=== PATIENT | male | born 1935 | race American Indian/Alaskan Native ===

== ENCOUNTER 2018-07-09 16:13 | Observation (INO) | payer BC ==
[2018-07-09] MEDS ORDERED: SODIUM CHLORIDE 1,000 ML IV SCH (16:15)
--- NOTE | 2018-07-09 17:11 | PDOC ---
Attending Attestation - Resident Resident Name: Minda Ganth - ED Attending Attestation I have performed the following: I have examined & evaluated the patient, The case was reviewed & discussed with the resident, I agree w/resident's findings & plan, Exceptions are as noted - HPI HPI: 07/09/18 17:11 82 yo male who became confused at 3:40 and had left facial droop - Physicial Exam PE: 07/09/18 19:45 slender 82 yo male with left facial droop head ncat eyes deann eomi neck no jvd lungs cta b/l cvs [id number] abd flat ext mild pitting edema neuro no motor weakness,no drift but very confused,mild let facial droop, no neglect,conversant skin warm and dry - Medical Decision Making 07/09/18 19:41 pt became confused at 3:40 today and p/w left facial droop and confusion,unable to understand what was requested of him . however he has NO motor weakness 07/09/18 19:42 ct scan head no acute infarct or bleed 07/09/18 19:43 pt admitted for TIA,HTn,DM consulted Veronika and plan for admission,asa,MRI
[2018-07-09] MEDS ORDERED: ASPIRIN 81 MG CHEWABLE TABLETS PO ONE ×2 (17:34→17:37)
[2018-07-09 17:42] LABS: BASO % 0.6 % (0-2.0); EOS % 1.4 % (0-4.5); HEMATOCRIT 37.9 % (35.4-49); LYMPH % 15.3 % (8-40); MCH 29.8 pg (25.7-33.7); MCHC 34.3 g/dl (32.0-35.9); MEAN PLT VOLUME 9.4 fl (7.5-11.1); MONO % 4.4 % (3.8-10.2); NEUT % 78.3 % (42.8-82.8); PLATELET COUNT 143 K/MM3 (134-434); RBC 4.36 M/mm3 (4.00-5.60); RDW 14.4 % (11.9-15.9); WHITE BLOOD COUNT 7.1 K/mm3 (4.0-10.0)
[2018-07-09] MEDS ORDERED: amLODIPine BESYLATE 10 MG TABLET (FP) PO ONE (17:43)
[2018-07-09] MEDS ORDERED: amLODIPine BESYLATE 5 MG TABLET (FP) ONE (17:50)
[2018-07-09] MEDS ORDERED: ASPIRIN 81 MG CHEWABLE TABLETS ONE (17:50)
[2018-07-09 17:56] LABS: INR 0.98 (0.83-1.09); PROTHROMBIN TIME (PATIENT) 11.6 SEC (9.7-13.0)
--- NOTE | 2018-07-09 18:16 | PDOC ---
History of Present Illness <Fidelina Larkin - Last Filed: 07/09/18 19:51> - History of Present Illness Initial Comments: 82yo M with history of IDDM, HTN, HLD presenting with left-sided facial droop. Collateral history provided from his . Patient's last know well was around 3 :40pm, about thirty minutes prior to arrival. She reports that he suddenly became very confused, was not speaking correctly, and had left-sided facial droop. <Maribel Gan - Last Filed: 07/12/18 07:34> - General Chief Complaint: CVA/TIA Stated Complaint: RULE OUT STROKE Time Seen by Provider: 07/09/18 16:45 tPA Exclusion Checklist 0-3hr - Time Elapsed Date last known well: 07/09/18 Time last known well: 15:40 Elaspsed time: 2 Day(s) and 15 Hour(s) and 47 Minutes - Thrombolytic Therapy Candidate Is the patient eligible for Thrombolytic Therapy?: No - Exclusion Criteria 0-3hr SBP greater than 185 or DBP greater than 110mmHg despite tx: Yes Recent IC/spinal surgery,head trauma or stroke w/in last 3mo: No Hx of previous IC hemorrhage, IC neoplasm, AVM or aneurysm: No Active internal bleeding: No Blding diathesis(low plt ct, inc PTT,INR>1.7 or use of NOAC): No Symptoms suggest subarachnoid hemorrhage: No CT demonstrates multilobar infarct(>1/3 cerebral hemiphere): No Arterial puncture at noncompressible site in previous 7 days: No Blood glucose concentration less than 50mg/dL (2.7mmol/L): No - Relative Exclusion Criteria 0-3h Life expectancy <1yr/severe co-morbid illness/DE[employer]DER on admit: No : No Patient/family refused: No Rapid improvement: No Stroke severity too mild: No Recent acute [place] (w/in previous 3 months): No Seizure at onset with postictal residual neuro impairments: No Major surgery or serious trauma w/in previous 14 days: No Recent GI or hemorrhage (w/in previous 21 days): No - Ineligibility reason(s) Reasons No tPA given: See reason(s) noted above (Dr. Rod, neurologist, also contends that patient's presentation is not consistent with a regional distribution) <ElviaMaribel - Last Filed: 07/12/18 07:34> NIH Stroke Scale - Last Known Well Date/Time & Onset Date Last Known Well: 07/09/18 Time Last Known Well: 15:40 - Initial Evaluation Level of consciousness: Alert Ask patient the month and their age: Both incorrect Ask patient to open & close eyes; make fist and let go: Both incorrect Best gaze (horizontal eye movement): Normal Visual field testing: No visual field loss Facial paresis (Show teeth/raise eyebrows/close eyes tight): Minor paralysis ( flattened nasolabial fold, asymmetry on smiling) Motor Function: Left Arm: Normal Motor Function: Right Arm: Normal (extends arm 90 (or 45) degrees for 10 seconds without drift Motor Function: Left Leg: Normal (extends leg 30 degrees for 5 seconds without drift) Motor Function: Right Leg: Normal (extends leg 30 degrees for 5 seconds without drift) Limb Ataxia: No ataxia Sensory(Use pinprick test arms,legs,trunk,face/side to side): Normal Best language (Describe picture, name items, read sentences): Severe aphasia Dysarthria (read several words): Normal articulation Extinction and Inattention: No abnormality - Total Score NIH Stroke Scale Score: 7 <ElviaMairbel - Last Filed: 07/12/18 07:34> Past History <Fidelina Larkin - Last Filed: 07/09/18 19:51> - Past Medical History CVA: Yes (TIA x2 2006,2009) COPD: No Diabetes: Yes (type 1) HTN: Yes Hypercholesterolemia: Yes - Suicide/Smoking/Psychosocial Hx Smoking Status: No Smoking History: Never smoked Have you smoked in the past 12 months: No Number of Cigarettes Smoked Daily: 0 Information on smoking cessation initiated: No Hx Alcohol Use: No Drug/Substance Use Hx: No Substance Use Type: None Hx Substance Use Treatment: No <Maribel Gan - Last Filed: 07/12/18 07:34> - Past Medical History Allergies/Adverse Reactions: Allergies Allergy/AdvReac Type Severity Reaction Status Date / Time shellfish derived AdvReac Severe Rash Verified 07/09/18 16:15 DUCK EGG AdvReac Severe Rash Uncoded 07/09/18 16:15 Home Medications: Ambulatory Orders Aspirin [ASA -] 81 mg PO DAILY 05/24/13 Enalapril Maleate [Vasotec -] 30 mg PO DAILY 05/24/13 NPH, Human Insulin Isophane [Humulin N] 25 unit SQ BID 05/24/13 Levothyroxine [Synthroid -] 25 mcg PO DAILY 07/09/18 Amlodipine Besylate [Norvasc -] 5 mg PO DAILY #30 tablet 07/11/18 Atorvastatin Ca [Lipitor] 80 mg PO HS #30 tablet 07/11/18 Metoprolol Succinate [Toprol XL -] 25 mg PO DAILY 30 Days tab.sr.24h 07/11/18 Review of Systems - Review of Systems Able to Perform ROS?: No (patient is confused) <Maribel Gan - Last Filed: 07/12/18 07:34> *Physical Exam - Vital Signs Last Vital Signs Temp Pulse Resp BP Pulse Ox 97.2 F L 90 20 202/87 H 97 07/09/18 16:56 07/09/18 18:23 07/09/18 18:23 07/09/18 18:23 07/09/18 18:23 <Fidelina Larkin - Last Filed: 07/09/18 19:51> - Vital Signs Last Vital Signs Temp Pulse Resp BP Pulse Ox 97.2 F L 97 H 18 202/90 H 99 07/09/18 16:56 07/09/18 17:45 07/09/18 16:15 07/09/18 16:15 07/09/18 17:45 - Physical Exam Comments: General: Awake, alert, and disoriented, in no acute distress Head: No signs of trauma Eyes: EOMI, sclera anicteric ENT: Moist mucus membranes Neck: Normal ROM, supple Lungs: Lungs clear, Normal breath sounds Cardio: Regular rhythm, S1 and S2 present Abdomen: Soft, nontender. No guarding, no rebound, no masses Extremities: Normal range of motion, Distal pulses present SKIN: Warm, Dry, normal turgor Neurologic: please see NIHSS above <Maribel Gan - Last Filed: 07/12/18 07:34> Moderate Sedation - Procedure Monitoring Vital Signs: Procedure Monitoring Vital Signs Temperature 97.2 F L 07/09/18 16:56 Pulse Rate 90 07/09/18 18:23 Respiratory Rate 20 07/09/18 18:23 Blood Pressure 202/87 H 07/09/18 18:23 O2 Sat by Pulse Oximetry (%) 97 07/09/18 18:23 <Fidelina Larkinh - Last Filed: 07/09/18 19:51> - Procedure Monitoring Vital Signs: Procedure Monitoring Vital Signs Temperature 97.2 F L 07/09/18 16:56 Pulse Rate 97 H 07/09/18 17:45 Respiratory Rate 18 07/09/18 16:15 Blood Pressure 202/90 H 07/09/18 16:15 O2 Sat by Pulse Oximetry (%) 99 07/09/18 17:45 <ElviaMaribel - Last Filed: 07/12/18 07:34> ED Treatment Course - LABORATORY CBC & Chemistry Diagram: 07/09/18 17:28 07/09/18 17:28 - ADDITIONAL ORDERS Additional order review: Laboratory Results 07/09/18 07/09/18 07/09/18 17:50 17:28 17:28 PT with INR INR Sodium 134 L Potassium 4.3 Chloride 99 Carbon Dioxide 27 Anion Gap 9 BUN 17 Creatinine 1.1 Creat Clearance w eGFR > 60 Random Glucose 218 H Calcium 8.6 Total Bilirubin 0.3 AST 39 H ALT 44 Alkaline Phosphatase 99 Creatine Kinase 304 Creatine Kinase Index 1.8 CK-MB (CK-2) 5.6 H Troponin I 0.03 Total Protein 7.8 Albumin 4.0 Triglycerides 96 Cholesterol 254 H Total LDL Cholesterol 128 H HDL Cholesterol 83 H Urine Color Ltyellow Urine Appearance Clear Urine pH 7.0 Ur Specific [place] 1.012 Urine Protein 2+ H Urine Glucose (UA) 1+ H Urine Ketones Negative Urine Blood Negative Urine Nitrite Negative Urine Bilirubin Negative Urine Urobilinogen Negative Ur Leukocyte Esterase Negative Urine WBC (Auto) 1 Urine RBC (Auto) 5 Ur Epithelial Cells Rare Hyaline Casts 1 Urine Mucus Rare Blood Type O POSITIVE Antibody Screen Negative 07/09/18 17:28 PT with INR 11.60 INR 0.98 Sodium Potassium Chloride Carbon Dioxide Anion Gap BUN Creatinine Creat Clearance w eGFR Random Glucose Calcium Total Bilirubin AST ALT Alkaline Phosphatase Creatine Kinase Creatine Kinase Index CK-MB (CK-2) Troponin I Total Protein Albumin Triglycerides Cholesterol Total LDL Cholesterol HDL Cholesterol Urine Color Urine Appearance Urine pH Ur Specific [place] Urine Protein Urine Glucose (UA) Urine Ketones Urine Blood Urine Nitrite Urine Bilirubin Urine Urobilinogen Ur Leukocyte Esterase Urine WBC (Auto) Urine RBC (Auto) Ur Epithelial Cells Hyaline Casts Urine Mucus Blood Type Antibody Screen 07/09/18 17:28 RBC 4.36 MCV 87.0 MCHC 34.3 RDW 14.4 MPV 9.4 Neutrophils % 78.3 D Lymphocytes % 15.3 D Monocytes % 4.4 Eosinophils % 1.4 Basophils % 0.6 - Medications Given in the ED: ED Medications Discontinued Medications Generic Name Dose Route Start Last Admin Trade Name Pauline PRN Reason Stop Dose Admin Amlodipine Besylate 10 mg 07/09/18 17:43 07/09/18 17:55 Norvasc - PO 07/09/18 17:44 10 mg ONCE ONE Administration Aspirin 162 mg 07/09/18 17:34 07/09/18 17:55 Asa - PO 07/09/18 17:35 162 mg ONCE ONE Administration Aspirin 81 mg 07/09/18 17:37 07/09/18 17:55 Asa - PO 07/09/18 17:38 81 mg ONCE ONE Administration <Fidelina Larkin - Last Filed: 07/09/18 19:51> - LABORATORY CBC & Chemistry Diagram: 07/10/18 05:30 07/10/18 05:30 - ADDITIONAL ORDERS Additional order review: Laboratory Results 07/09/18 17:28 PT with INR 11.60 INR 0.98 07/09/18 17:28 RBC 4.36 MCV 87.0 MCHC 34.3 RDW 14.4 MPV 9.4 Neutrophils % 78.3 D Lymphocytes % 15.3 D Monocytes % 4.4 Eosinophils % 1.4 Basophils % 0.6 - RADIOLOGY Radiology Studies Ordered: Category Date Time Status BRAIN MRA W/O CONTRAST [MRI] Stat MRI 07/09/18 17:38 Ordered BRAIN MRI W/O CONTRAST [MRI] Stat MRI 07/09/18 17:38 Ordered - Medications Given in the ED: ED Medications Discontinued Medications Generic Name Dose Route Start Last Admin Trade Name Freq PRN Reason Stop Dose Admin Amlodipine Besylate 10 mg 07/09/18 17:43 07/09/18 17:55 Norvasc - PO 07/09/18 17:44 10 mg ONCE ONE Administration Aspirin 162 mg 07/09/18 17:34 07/09/18 17:55 Asa - PO 07/09/18 17:35 162 mg ONCE ONE Administration Aspirin 81 mg 07/09/18 17:37 07/09/18 17:55 Asa - PO 07/09/18 17:38 81 mg ONCE ONE Administration <Maribel Gan - Last Filed: 07/12/18 07:34> Medical Decision Making - Medical Decision Making 82yo M with history of IDDM, HTN, HLD presenting with left-sided facial droop. -CVA/TIA order set -NIHSS, TPA criteria: please see above -Recommendations from neurologist, Dr. Banda: Total of 324mg ASA (as patient has already taken 81mg ASA today per his , 162 + 81mg ordered), MRI/MRA, and admission -PO Norvasc 10 ordered for hypertension -No leukocytosis or anemia; UA negative for infection; Tpn=0.03 -Discussed case with hospitalist team who accepted patient for admission under Dr. Burrell <Maribel Gan - Last Filed: 07/12/18 07:34> *DC/Admit/Observation/Transfer <Fidelina Larkin - Last Filed: 07/09/18 19:51> - Discharge Dispostion Decision to Admit order: Yes <Maribel Gan - Last Filed: 07/12/18 07:34> Diagnosis at time of Disposition: TIA (transient ischemic attack) - Discharge Dispostion Disposition: HOME Condition at time of disposition: Improved
[2018-07-09 18:19] LABS: ALK PHOS 99 U/L (45-117); ANION GAP 9 MMOL/L (8-16); BILIRUBIN,TOTAL 0.3 mg/dL (0.2-1); BLOOD UREA NITROGEN 17 mg/dL (7-18); CALCIUM 8.6 mg/dL (8.5-10.1); CHLORIDE 99 mmol/L (98-107); CHOLESTEROL 254 mg/dL (50-200); CO2 27 mmol/L (21-32); CREATININE 1.1 mg/dL (0.55-1.3); GLUCOSE,RANDOM 218 mg/dL (74-106); HDL CHOLESTEROL 83 mg/dL (40-60); POTASSIUM 4.3 mmol/L (3.5-5.1); SGOT/AST 39 U/L (15-37); SGPT/ALT 44 U/L (13-61); SODIUM 134 mmol/L (136-145); TOT PROT 7.8 g/dl (6.4-8.2); TRIGLYCERIDES 96 mg/dL (0-150)
[2018-07-09 18:56] LABS: URINE APPEARANCE CLEAR; URINE BILIRUBIN NEGATIVE (<2.0 mg/dL); URINE COLOR LTYELLOW; URINE GLUCOSE (UA) 1+ (NEGATIVE); URINE KETONE NEGATIVE (NEGATIVE); URINE LEUK ESTERASE NEGATIVE (NEGATIVE); URINE NITRITE NEGATIVE (NEGATIVE); URINE PROTEIN 2+ (NEGATIVE); URINE UROBILINOGEN NEGATIVE mg/dL (0.2-1.0)
[2018-07-09 19:04] LABS: EPI CELLS RARE /HPF (FEW); URINE HYALINE CAST 1 /lpf; URINE MUCUS RARE
--- NOTE | 2018-07-09 20:23 | PN ---
Teaching Attending Note Name of Resident: Monico Levy ATTENDING PHYSICIAN STATEMENT I saw and evaluated the patient. I reviewed the resident's note and discussed the case with the resident. I agree with the resident's findings and plan as documented. SUBJECTIVE: Sebastian is an 82year old man with history of IDDM, HTN, and HLD presenting with left-sided facial droop. Collateral history provided from his . Patient's last know well was around 3:40pm, about thirty minutes prior to arrival. She reports that he suddenly became very confused, was not speaking correctly, and had left-sided facial droop. NIHSS in the ER was 7 but has now completely resolved. Got amlodipine 10 mg to control severe hypertension. OBJECTIVE: Alert Vital Signs Period Temp Pulse Resp BP Sys/Lorenz Pulse Ox Last 24 Hr 97.2 F 89-97 18-20 202-202/87-90 94-99 HEENT: No Jaundice, eye redness or discharge, PERRLA, EOMI. Normocephalic, atraumatic. External ears are normal and hearing is grossly intact. No nasal discharge. Neck: Supple, nontender. No palpable adenopathy or thyromegaly. No JVD Chest: Good effort. Clear to auscultation and percussion. Heart: Regular. No S3, rub or murmur Abdomen: Not distended, soft, nontender and no HSM. No rebound or guarding. Normoactive bowel sounds. Ext: Peripheral pulses intact. No leg edema. Skin: Warm and dry. No petechiae, rash or ecchymosis. Neuro: Alert. Oriented x3. CN 2-12 grossly intact. Sensation grossly intact in all four extremities and DTR are symmetric. Current Medications Generic Name Dose Route Start Last Admin Trade Name Freq PRN Reason Stop Dose Admin Sodium Chloride 1,000 mls @ 42 mls/hr 07/09/18 16:15 07/09/18 17:08 Normal Saline - IV 42 mls/hr ASDIR JOSE Administration Home Medications Medication Instructions Recorded Aspirin [ASA -] 81 mg PO DAILY 05/24/13 Enalapril Maleate [Vasotec -] 30 mg PO DAILY 05/24/13 NPH, Human Insulin Isophane 25 unit SQ BID 05/24/13 [Humulin N] Levothyroxine [Synthroid -] 25 mcg PO DAILY 07/09/18 Simvastatin 10 mg PO DAILY 07/09/18 Abnormal Lab Results 07/09/18 07/09/18 17:28 17:50 Sodium 134 L Random Glucose 218 H AST 39 H CK-MB (CK-2) 5.6 H Cholesterol 254 H Total LDL Cholesterol 128 H HDL Cholesterol 83 H Urine Protein 2+ H Urine Glucose (UA) 1+ H ASSESSMENT AND PLAN: 1. TIA - No acute pathology noted on head CT and MRI. Not a candidate for tPa. Will monitor on telemetry, get ECHO, carotid doppler, optimize statin therapy, continue aspirin, get swallow evaluation, consult PT and neurology, implement aspiration and fall precautions, neurochecks, adopt permissive hypertension and evaluate proteinuria. Upon discharge, intensify ACEI/ARB therapy. 2. DM - For now, we will hold the home diabetes drugs and implement sliding scale insulin regimen. Provide comprehensive diabetes care with patient teaching and counseling about the importance of euglycemia, eye care and foot care. 3. DVT prophylaxis - Lovenox 40 mg SQ q 24 hours. 4. Advance directives - Full code
[2018-07-09 20:45] VITALS: BMI 25.7
[2018-07-09] MEDS ORDERED: ATORVASTATIN CA 40 MG TABLET (FP) PO SCH (22:00)
[2018-07-09] MEDS: INSULIN SLIDING SCALE (NOVOLOG) 1 VIAL SQ SCH (22:18)
[2018-07-10] MEDS: DOCUSATE SODIUM 100 MG CAPSULE (FP) PO SCH ×3 (00:07→22:00)
--- NOTE | 2018-07-10 00:38 | HP ---
CHIEF COMPLAINT:confusion and left-sided facial droop PCP: Abilio Recio HISTORY OF PRESENT ILLNESS: 82 yo M PMH IDDM, HTN, HLD, TIAX2 (2006,2009) p/w sudden onset confusion and left-sided facial droop. Collateral history provided from his and daughter. Patient's last know well was around 3:40pm, about thirty minutes prior to arrival. She reports that he suddenly became very confused, was not speaking correctly, had left-sided facial droop and was staring at L side. Denies fevers, LOC, fall, cp, sob, urinary sxs, dizziness, seizure like activity ER course was notable for: (1) BP 202/87, was given amlodipine 10 mg w/ response to 180s (2)NIHSS in the ER was 7 but has now completely resolved. ASA 325. tpa not given per neuro as patient's presentation is not consistent with a regional distribution) (3)CT head, MRI/MRA neg Recent Travel: PAST MEDICAL HISTORY: f/u w/ eye doc and foot doc IDDM, HTN, HLD, TIAX2 (2006,2009) PAST SURGICAL HISTORY: Social History: Smoking: denies Alcohol:denies Drugs: denies Family History: DM, HTN Allergies shellfish derived Adverse Reaction (Severe, Verified 07/09/18 16:15) Rash DUCK EGG Adverse Reaction (Severe, Uncoded 07/09/18 16:15) Rash HOME MEDICATIONS: Home Medications Medication Instructions Recorded Aspirin [ASA -] 81 mg PO DAILY 05/24/13 Enalapril Maleate [Vasotec -] 30 mg PO DAILY 05/24/13 NPH, Human Insulin Isophane 25 unit SQ BID 05/24/13 [Humulin N] Levothyroxine [Synthroid -] 25 mcg PO DAILY 07/09/18 Simvastatin 10 mg PO DAILY 07/09/18 REVIEW OF SYSTEMS as per HPI PHYSICAL EXAMINATION Vital Signs - 24 hr 07/09/18 07/09/18 07/09/18 16:15 16:56 17:45 Temperature 97.2 F L Pulse Rate 89 97 H Pulse Rate [ Apical] Respiratory 18 Rate Blood Pressure 202/90 H Blood Pressure [Left Arm] O2 Sat by Pulse 94 L 99 Oximetry (%) 07/09/18 07/09/18 18:23 18:47 Temperature 98.4 F Pulse Rate 86 Pulse Rate [ 90 Apical] Respiratory 20 18 Rate Blood Pressure 189/93 H Blood Pressure 202/87 H [Left Arm] O2 Sat by Pulse 97 98 Oximetry (%) GENERAL: AOX3 NAD HEAD:NCAT EYES: PERRLA, extraocular movements intact, sclera anicteric, conjunctiva clear. No lid lag. EARS, NOSE, THROAT: nares patent, oropharynx clear without exudates. MMM NECK: Normal range of motion, supple without lymphadenopathy, JVD, or masses. LUNGS: CTAB. HEART: RRR, normal S1 and S2 without murmur, rub or gallop. ABDOMEN: Soft, NTND, normoactive bowel sounds, no guarding, no rebound, no masses. MUSCULOSKELETAL: Normal range of motion at all joints. No bony deformities or tenderness. UPPER EXTREMITIES: 2+ pulses, warm, well-perfused. No cyanosis. No clubbing. No peripheral edema. LOWER EXTREMITIES: 2+ pulses, warm, well-perfused. No calf tenderness. No peripheral edema. NEUROLOGICAL: Cranial nerves II-XII intact. Normal speech. strength sensation intact bl. dysmetria on R FNT however exam limited by a chronic R shoulder injury PSYCHIATRIC: Cooperative. Good eye contact. Appropriate mood and affect. SKIN: Warm, dry, normal turgor, no rashes or lesions noted, normal capillary refill. Laboratory Results - last 24 hr 07/09/18 07/09/18 07/09/18 17:28 17:28 17:28 WBC 7.1 RBC 4.36 Hgb 13.0 Hct 37.9 D MCV 87.0 MCH 29.8 MCHC 34.3 RDW 14.4 Plt Count 143 MPV 9.4 Absolute Neuts (auto) 5.6 Neutrophils % 78.3 D Lymphocytes % 15.3 D Monocytes % 4.4 Eosinophils % 1.4 Basophils % 0.6 Nucleated RBC % 0 PT with INR 11.60 INR 0.98 Sodium 134 L Potassium 4.3 Chloride 99 Carbon Dioxide 27 Anion Gap 9 BUN 17 Creatinine 1.1 Creat Clearance w eGFR > 60 POC Glucometer Random Glucose 218 H Hemoglobin A1c % Calcium 8.6 Total Bilirubin 0.3 AST 39 H ALT 44 Alkaline Phosphatase 99 Creatine Kinase 304 Creatine Kinase Index 1.8 CK-MB (CK-2) 5.6 H Troponin I 0.03 Total Protein 7.8 Albumin 4.0 Triglycerides 96 Cholesterol 254 H Total LDL Cholesterol 128 H HDL Cholesterol 83 H Urine Color Urine Appearance Urine pH Ur Specific [place] Urine Protein Urine Glucose (UA) Urine Ketones Urine Blood Urine Nitrite Urine Bilirubin Urine Urobilinogen Ur Leukocyte Esterase Urine WBC (Auto) Urine RBC (Auto) Ur Epithelial Cells Hyaline Casts Urine Mucus Blood Type Antibody Screen 07/09/18 07/09/18 07/09/18 17:28 17:28 17:50 WBC RBC Hgb Hct MCV MCH MCHC RDW Plt Count MPV Absolute Neuts (auto) Neutrophils % Lymphocytes % Monocytes % Eosinophils % Basophils % Nucleated RBC % PT with INR INR Sodium Potassium Chloride Carbon Dioxide Anion Gap BUN Creatinine Creat Clearance w eGFR POC Glucometer Random Glucose Hemoglobin A1c % 8.3 H Calcium Total Bilirubin AST ALT Alkaline Phosphatase Creatine Kinase Creatine Kinase Index CK-MB (CK-2) Troponin I Total Protein Albumin Triglycerides Cholesterol Total LDL Cholesterol HDL Cholesterol Urine Color Ltyellow Urine Appearance Clear Urine pH 7.0 Ur Specific [place] 1.012 Urine Protein 2+ H Urine Glucose (UA) 1+ H Urine Ketones Negative Urine Blood Negative Urine Nitrite Negative Urine Bilirubin Negative Urine Urobilinogen Negative Ur Leukocyte Esterase Negative Urine WBC (Auto) 1 Urine RBC (Auto) 5 Ur Epithelial Cells Rare Hyaline Casts 1 Urine Mucus Rare Blood Type O POSITIVE Antibody Screen Negative 07/09/18 21:53 WBC RBC Hgb Hct MCV MCH MCHC RDW Plt Count MPV Absolute Neuts (auto) Neutrophils % Lymphocytes % Monocytes % Eosinophils % Basophils % Nucleated RBC % PT with INR INR Sodium Potassium Chloride Carbon Dioxide Anion Gap BUN Creatinine Creat Clearance w eGFR POC Glucometer 278 Random Glucose Hemoglobin A1c % Calcium Total Bilirubin AST ALT Alkaline Phosphatase Creatine Kinase Creatine Kinase Index CK-MB (CK-2) Troponin I Total Protein Albumin Triglycerides Cholesterol Total LDL Cholesterol HDL Cholesterol Urine Color Urine Appearance Urine pH Ur Specific [place] Urine Protein Urine Glucose (UA) Urine Ketones Urine Blood Urine Nitrite Urine Bilirubin Urine Urobilinogen Ur Leukocyte Esterase Urine WBC (Auto) Urine RBC (Auto) Ur Epithelial Cells Hyaline Casts Urine Mucus Blood Type Antibody Screen ASSESSMENT/PLAN: 82 yo M PMH IDDM, HTN, HLD, hypothyroid, TIAX2 (2006,2009) p/w sudden onset confusion and left-sided facial droop. TIA - NIHSS in the ER was 7 but has now completely resolved No acute pathology noted on head CT and MRI. tpa not given per neuro as patient's presentation is not consistent with a regional distribution. ECHO carotid U/S start high dose Lipitor 40 in setting of TIA c/w ASA s/p asa 325 in ED, speech/swallow evaluation, PT eval neuro consult aspiration and fall precautions neurochecks adopt permissive hypertension Will monitor on telemetry DM - ISS BGM ACHS glucose ctl 140-180 f/u A1c HTN - unctl. Possible HTN emergency? BP 202/87 s/p amlodipine 10 mg w/ response to 180s...160s monitor BP c/w home enalapril HLD lipid panel: LDL 128, cholest 254, HDL 83 start high dose Lipitor 40 in setting of TIA hypothyroid -home synthroid FEN no IVF replete prn DM/Na/choles ctl diet, pt passed bedside swallow test prophylaxis Lovenox 40 mg SQ qd colace Advance directives - Full code Dispo tele obs Visit type - Emergency Visit Emergency Visit: Yes ED Registration Date: 07/09/18 Care time: The patient presented to the Emergency Department on the above date and was hospitalized for further evaluation of their emergent condition. - New Patient This patient is new to me today: Yes Date on this admission: 07/10/18 - Critical Care Critical Care patient: No
[2018-07-10] MEDS: LEVOTHYROXINE NA 25 MCG TABLET (FP) PO SCH (06:44)
[2018-07-10] MEDS: INSULIN SLIDING SCALE (NOVOLOG) 1 VIAL SQ SCH ×4 (06:44→21:49)
[2018-07-10 06:50] LABS: BASO % 0.7 % (0-2.0); EOS % 2.5 % (0-4.5); HEMATOCRIT 34.9 % (35.4-49); HEMOGLOBIN 12.1 GM/dL (11.7-16.9); LYMPH % 23.3 % (8-40); MCH 29.8 pg (25.7-33.7); MCHC 34.7 g/dl (32.0-35.9); MEAN PLT VOLUME 9.7 fl (7.5-11.1); MONO % 9.1 % (3.8-10.2); NEUT % 64.4 % (42.8-82.8); PLATELET COUNT 144 K/MM3 (134-434); RBC 4.06 M/mm3 (4.00-5.60); RDW 14.3 % (11.9-15.9); WHITE BLOOD COUNT 6.4 K/mm3 (4.0-10.0)
[2018-07-10 07:23] LABS: ALBUMIN 3.2 g/dl (3.4-5.0); ALK PHOS 80 U/L (45-117); ANION GAP 5 MMOL/L (8-16); BILIRUBIN,TOTAL 0.4 mg/dL (0.2-1); BLOOD UREA NITROGEN 16 mg/dL (7-18); CALCIUM 8.2 mg/dL (8.5-10.1); CHLORIDE 103 mmol/L (98-107); CO2 30 mmol/L (21-32); CREATININE 0.8 mg/dL (0.55-1.3); GLUCOSE,RANDOM 175 mg/dL (74-106); PHOSPHOROUS 3.5 mg/dL (2.5-4.9); POTASSIUM 3.8 mmol/L (3.5-5.1); SGOT/AST 28 U/L (15-37); SGPT/ALT 34 U/L (13-61); SODIUM 138 mmol/L (136-145); TOT PROT 6.6 g/dl (6.4-8.2)
--- NOTE | 2018-07-10 09:47 | CON.NEURO ---
Consult - History of Present Illness History of Present Illness: 82 yo M PMH IDDM, HTN, HLD, TIAX2 (2006,2009) p/w sudden onset confusion and left-sided facial droop. Collateral history provided from his and daughter. Patient's last know well was around 3:40pm, about thirty minutes prior to arrival. She reports that he suddenly became very confused, was not speaking correctly, had left-sided facial droop and was staring at L side. Denies fevers, LOC, fall, cp, sob, urinary sxs, dizziness, seizure like activity ER course (1) BP 202/87, was given amlodipine 10 mg w/ response to 180s (2)NIHSS in the ER was 7 but has now completely resolved. ASA 325. tpa not given per neuro as patient's presentation is not consistent with a regional distribution) (3)CT head (-) slight confusion though closer to baseline as per family BP better MRI BRAIN Impression Moderate volume loss and mild periventricular chronic microvascular ischemic disease changes with a focal left chronic infarcts in the left anterior frontal periventricular white matter measuring 9 mm. MRA of the brain. A noncontrast MRA of the brain was performed utilizing 3-D [id number] technique. Source and MIP images were reviewed. In the anterior circulation, there is appears to be focal hemodynamically significant stenosis in the left cavernous carotid artery and mild to moderate narrowing in the right cavernous carotid artery. No gross aneurysm or major artery cutoff is seen. In the posterior circulation, the vertebrobasilar junction, basilar artery and tip appear unremarkable. There is suggestion of focal moderate narrowing in the right P1 and left T1 segment. Impression: No major artery cutoff or aneurysm are identified within the central intracranial arterial circulation. There is hemodynamically significant stenosis, greater than 50% in the left cavernous carotid artery and mild to moderate narrowing of the right. There is suggestion of a short segment of mild stenosis of the left proximal posterior cerebral artery with a short segment of at least moderate narrowing in the right P1 segment. If clinically indicated correlation with CT angiogram could be obtained for confirmation No gross focal stenosis, aneurysm, major artery cutoff or vascular malformation is identified within the central intracranial arterial circulation. - History Source History Provided By: Family Member - Alcohol/Substance Use Hx Alcohol Use: No - Smoking History Smoking history: Never smoked Have you smoked in the past 12 months: No Aproximately how many cigarettes per day: 0 Home Medications - Allergies Allergies/Adverse Reactions: Allergies Allergy/AdvReac Type Severity Reaction Status Date / Time shellfish derived AdvReac Severe Rash Verified 07/09/18 16:15 DUCK EGG AdvReac Severe Rash Uncoded 07/09/18 16:15 - Home Medications Home Medications: Ambulatory Orders Aspirin [ASA -] 81 mg PO DAILY 05/24/13 Enalapril Maleate [Vasotec -] 30 mg PO DAILY 05/24/13 NPH, Human Insulin Isophane [Humulin N] 25 unit SQ BID 05/24/13 Levothyroxine [Synthroid -] 25 mcg PO DAILY 07/09/18 Simvastatin 10 mg PO DAILY 07/09/18 Physical Exam-Neuro Vital Signs: Vital Signs Temperature 98.0 F 07/10/18 06:00 Pulse Rate 68 07/10/18 06:00 Respiratory Rate 18 07/10/18 06:25 Blood Pressure 156/68 07/10/18 06:00 O2 Sat by Pulse Oximetry (%) 98 07/10/18 06:25 Labs: CBC, BMP 07/10/18 05:30 07/10/18 05:30 INR, PTT INR 0.98 (0.83-1.09) 07/09/18 17:28 - Neuro Exam Level Of Consciousness: Yes: Alert (awake, alert, does not know exact yr, follwos basic commands, no focal weakness, mild left facial, + kinetic and action tremor and mild cogwheeling R >L ) Imaging - Results MRI: Report Reviewed, Image Reviewed Problem List - Problems (1) Hypertension Code(s): I10 - ESSENTIAL (PRIMARY) HYPERTENSION (2) TIA (transient ischemic attack) Code(s): G45.9 - TRANSIENT CEREBRAL ISCHEMIC ATTACK, UNSPECIFIED (3) Type 2 diabetes mellitus Code(s): E11.9 - TYPE 2 DIABETES MELLITUS WITHOUT COMPLICATIONS Assessment/Plan 82 yo M PMH IDDM, HTN, HLD, TIAX2 (2006,2009) p/w sudden onset confusion and left-sided facial droop. Collateral history provided from his and daughter. transient confusion and left facial; r/o metabolic derangement, vs hypertensive encephalopathy vs TIA not tpa candidate given unclear if this was a stroke phenomena MRI BRAIN (-) for acute event FU Doppler, ECHO, HOLTER ASA, statin DM and BP optimization of note, likely has underlying ET as well vs metabolic ( as per him he has had this for yrs) DR GALVEZ
--- NOTE | 2018-07-10 09:49 | EKG ---
Test Reason : Blood Pressure : / mmHG Vent. Rate : 086 BPM Atrial Rate : 086 BPM P-R Int : 222 ms QRS Dur : 146 ms QT Int : 402 ms P-R-T Axes : 053 -30 013 degrees QTc Int : 481 ms SINUS RHYTHM WITH 1ST DEGREE A-V BLOCK LEFT AXIS DEVIATION RIGHT BUNDLE BRANCH BLOCK MODERATE VOLTAGE CRITERIA FOR LVH, MAY BE NORMAL VARIANT CANNOT RULE OUT SEPTAL INFARCT (CITED ON OR BEFORE 24-MAY-2013) ABNORMAL ECG WHEN COMPARED WITH ECG OF 24-MAY-2013 18:03, IA INTERVAL HAS INCREASED QUESTIONABLE CHANGE IN INITIAL FORCES OF SEPTAL LEADS Confirmed by SKYLER CHIRINOS, DAYNA ([id number]) on 07/10/2018 9:49:12 AM Referred By: Confirmed By:DAYNA HOLLAND MD
[2018-07-10] MEDS ORDERED: PATIENT'S OWN MEDICATION (NON-FORMULARY) (Simvastatin [Simvastatin] 10 MG) PO SCH (10:00)
[2018-07-10] MEDS ORDERED: ATORVASTATIN CA 80 MG TABLET (FP) PO SCH (10:48)
--- NOTE | 2018-07-10 10:51 | CONSULT ---
Admitting History and Physical - Primary Care Physician PCP: Michelle Montez - Admission History of Present Illness: 82 yo M PMH IDDM, HTN, HLD, TIAX2 (2006,2009) p/w sudden onset confusion and left-sided facial droop. Per neurology-r/o metabolic derangement, vs hypertensive encephalopathy vs TIA MRI BRAIN (-) for acute event Pt awake and alert, greatly improved mentation as reported by family. Selected Entries 07/10/18 07/10/18 07/10/18 01:29 02:25 06:00 Temperature 98.1 F 98.1 F 98.0 F Laboratory Tests 07/10/18 05:30 WBC 6.4 History Source: Patient, Family Member, Medical Record Limitations to Obtaining History: Clinical Condition (forgetful, "2020" repeatedly, unable to retain 2018 after 1 minute without distraction, ""83" yo. Pt's daughter reports mentation varies based on his blood sugar.) - Smoking History Smoking history: Never smoked Have you smoked in the past 12 months: No Aproximately how many cigarettes per day: 0 - Alcohol/Substance Use Hx Alcohol Use: No History - Admission Reason For Visit: HYPERTENSIVE URGENCY, TIA - Diagnostics MRI: Report Reviewed (MRI BRAIN Impression Moderate volume loss and mild periventricular chronic microvascular ischemic disease changes with a focal left chronic infarcts in the left anterior frontal periventricular white matter measuring 9 mm. MRA of the brain. A noncontrast MRA of the brain was performed utilizing 3-D [id number] technique. Source and MIP images were reviewed. In the anterior circulation, there is appears to be focal hemodynamically significant stenosis in the left cavernous carotid artery and mild to moderate narrowing in the right cavernous carotid artery. No gross aneurysm or major artery cutoff is seen. In the posterior circulation, the vertebrobasilar junction, basilar artery and tip appear unremarkable. There is suggestion of focal moderate narrowing in the right P1 and left T1 segment. Impression: No major artery cutoff or aneurysm are identified within the central intracranial arterial circulation. There is hemodynamically significant stenosis, greater than 50% in the left cavernous carotid artery and mild to moderate narrowing of the right. There is suggestion of a short segment of mild stenosis of the left proximal posterior cerebral artery with a short segment of at least moderate narrowing in the right P1 segment. If clinically indicated correlation with CT angiogram could be obtained for confirmation No gross focal stenosis, aneurysm, major artery cutoff or vascular malformation is identified within the central intracranial arterial circulation.) - General Mental Status: Awake and Alert, Able to Follow Commands, Forgetful Attention: Intact Ability to Follow Directions: Good Head/Neck Control: WFL - Hearing Hearing: Normal Hearing Aide: No With Patient: No Speech Evaluation - Communication Primary Language: [place] Communication: Yes: Within Normal Limits Oral Expression Ability: Yes: No Impairment - Speech Production Able to Make Needs Known: Yes: WNL Intelligibility: Yes: WNL - Speech Characteristics Voice Loudness: Normal Voice Pitch: Yes: Normal Voice Phonatory-based Quality: Yes: Normal Speech Pattern: Normal Speech Clarity: < 100% Nasal Resonance: Normal Articulation: Yes: Precise - Language/Auditory Comprehension Follows: Yes: 1 Stage Simple Commands - Language/Verbal Expression Able to Communicate Wants and Needs: Yes: WNL Functional Communication Status: Yes: WNL - Swallow Evaluation/Bedside Assessment Current Nutritional Intake: Regular, Thin Liquids Oral Secretions: Yes: WFL Dentition: Yes: Adequate Facial Symmetry at Rest: Facial Droop Left (mild) Facial Symmetry on Retraction: Symmetrical Against Resistance Opening: Normal Against Resistance Closing: Normal Pucker Lips: Normal Smile: Normal Lingual Movement: Normal, Symmetric Lingual Speed of Movement: Normal Lingual Movement Strgth Against Opposition: Normal Lingual Movement Characteristics: Normal Velopharyngeal Movement: Normal Laryngeal Elevation: WFL Laryngeal Movement: Able to Palpate Rate of Intake: WFL Bolus Size: WFL Labial Seal: WFL Chewing: WFL Oral Prep Time: WFL A-P Transit: WFL Pocketing: None Timing of Swallow: WFL Coughing/Throat Clear: No Change in Voice: No Recommendations - Speech Evaluation, Impression/Plan Impression: Verbal, forgetful. No Aphasia/Dysarthria. Swallowing overtly intact. - Disposition Discharge to: Home with Assist - Dysphagia Impressions/Plan Swallowing Skills: WFL Dysphagia Impressions: No Impairment *Silent aspiration: cannot be R/O at bedside - Recommendations Diet Consistency: Regular Medication Administration: Whole with water Liquids: Thin Liquids
[2018-07-10] MEDS: ENALAPRIL MALEATE 10 MG TABLET (FP) PO SCH (10:53)
[2018-07-10] MEDS: ENOXAPARIN NA (PORCINE) 40 MG/0.4 ML DISP.SYRIN SQ SCH (10:53)
[2018-07-10] MEDS: ASPIRIN 81 MG CHEWABLE TABLETS PO SCH (10:53)
--- NOTE | 2018-07-10 11:24 | PN ---
Progress Note, Physician Chief Complaint: Pt sitting in bed in no acute distress. reports he feels great today, back at his baseline. Denies any chest pain, sob, dysphagia, slurred speech, n/v/d - Current Medication List Current Medications: Active Medications Aspirin (Asa -) 81 mg PO DAILY [facility] Last Admin: 07/10/18 10:53 Dose: 81 mg Atorvastatin Calcium (Lipitor -) 80 mg PO [facility] Docusate Sodium (Colace -) 100 mg PO BID [facility] Last Admin: 07/10/18 10:53 Dose: 100 mg Enalapril Maleate (Vasotec -) 30 mg PO DAILY [facility] Last Admin: 07/10/18 10:53 Dose: 30 mg Enoxaparin Sodium (Lovenox -) 40 mg SQ DAILY [facility] Last Admin: 07/10/18 10:53 Dose: 40 mg Insulin Aspart (Novolog Vial Sliding Scale -) 1 vial SQ [facility]; Protocol Last Admin: 07/10/18 06:44 Dose: Not Given Levothyroxine Sodium (Synthroid -) 25 mcg PO DAILY@0700 [facility] Last Admin: 07/10/18 06:44 Dose: 25 mcg - Objective Vital Signs: Vital Signs Temperature 98.0 F 07/10/18 06:00 Pulse Rate 68 07/10/18 06:00 Respiratory Rate 18 07/10/18 06:25 Blood Pressure 156/68 07/10/18 06:00 O2 Sat by Pulse Oximetry (%) 98 07/10/18 06:25 Constitutional: Yes: Well Nourished, No Distress, Calm Cardiovascular: Yes: WNL, Regular Rate and Rhythm. No: Murmur Respiratory: Yes: WNL, Regular, CTA Bilaterally. No: Accessory Muscle Use, SOB , Tachypnea, Wheezes Gastrointestinal: Yes: WNL, Normal Bowel Sounds, Soft. No: Distention, Tenderness Genitourinary: Yes: WNL Musculoskeletal: Yes: WNL Extremities: Yes: WNL Edema: No Neurological: Yes: WNL, Alert, Oriented. No: Facial Droop, Lethargy, Numbness, Paresthesia, Seizure, Tingling, Tremors, Weakness Psychiatric: Yes: WNL, Alert, Oriented Labs: CBC, BMP 07/10/18 05:30 07/10/18 05:30 INR, PTT INR 0.98 (0.83-1.09) 07/09/18 17:28 Problem List - Problems (1) TIA (transient ischemic attack) Assessment/Plan: episode of confusion/L facial droop yesterday which resolved pt currently at baseline tia vs symptomatic carotid stenosis CT/ MRI/MRA neg for acute CVA MRA- reveals hemodynamically significant stenosis of left carotid mild to mod stenosis in right carotid carotid us- 70% to near occlusion of left carotid CTA ordered asa/high dose statin neurology/vascular following Code(s): G45.9 - TRANSIENT CEREBRAL ISCHEMIC ATTACK, UNSPECIFIED (2) Hypertensive urgency Assessment/Plan: BP at admission 200s/90s improved continue vasotec metoprolol started low na diet monitor Code(s): I16.0 - HYPERTENSIVE URGENCY (3) Carotid stenosis, left Assessment/Plan: as above possibly symptomatic Code(s): I65.22 - OCCLUSION AND STENOSIS OF LEFT CAROTID ARTERY (4) Hypertension Assessment/Plan: BP goal 130/80 as above cardiology consulted Code(s): I10 - ESSENTIAL (PRIMARY) HYPERTENSION Qualifiers: Hypertension type: essential hypertension Qualified Code(s): I10 - Essential (primary) hypertension (5) Type 2 diabetes mellitus Assessment/Plan: uncontrolled HgA1c 8.3 BGM insulin sliding scale diab diet close follow up outpt Code(s): E11.9 - TYPE 2 DIABETES MELLITUS WITHOUT COMPLICATIONS Qualifiers: Diabetes mellitus penitentiary insulin use: with penitentiary use Diabetes mellitus complication status: with skin complications Diabetes mellitus complication detail: with foot ulcer Qualified Code(s): E11.621 - Type 2 diabetes mellitus with foot ulcer; L97.509 - Non-pressure chronic ulcer of other part of unspecified foot with unspecified severity; Z79.4 - terminal superintendent ( current) use of insulin (6) HLD (hyperlipidemia) Assessment/Plan: uncontrolled, LDL 128 LDL goal <70 high dose statin outpt f/u Code(s): E78.5 - HYPERLIPIDEMIA, UNSPECIFIED Assessment/Plan Dispo: Home. Pending CTA and vascular recs
--- NOTE | 2018-07-10 12:18 | PN ---
Progress Note (short form) - Note Progress Note: VAscular Surgery Brain MRA reviewed. Pt has stenosis in left cavernous carotid artery of 50%. No surgery needed for that segment. Carotid doppler is ordered. Will follow to see if there is a significant stenosis there. Pt well known to our practice. Charly Cevallos DO
--- NOTE | 2018-07-10 12:53 | ECHO ---
Name: SALONI GUALLPA Exam:Adult Echocardiogram Study Date: 07/10/2018 09:28 AM Age: 82 yrs Reason For Study: TIA Height: 71 in Weight: 184 lb BSA: 2.0 m2 MMode/2D Measurements & Calculations IVSd: 0.94 cm Ao root diam: 2.5 cm LVIDd: 4.9 cm LA dimension: 4.2 cm LVIDs: 3.5 cm LVPWd: 0.93 cm EDV(Teich): 113.4 ml LVOT diam: 2.2 cm ESV(Teich): 49.4 ml TAPSE: 3.9 cm Doppler Measurements & Calculations MV E max lele: 70.6 cm/sec Ao V2 max: 309.1 cm/sec MV A max lele: 101.7 cm/sec Ao max P.2 mmHg MV E/A: 0.69 Ao V2 mean: 218.9 cm/sec MV dec time: 0.15 sec Ao mean P.1 mmHg Ao V2 VTI: 64.8 cm PA(I,D): 1.3 cm2 AI P1/2t: 304.1 msec PA(V,D): 1.2 cm2 AI max lele: 296.2 cm/sec LV V1 max P.0 mmHg AI max P.1 mmHg LV V1 mean P.1 mmHg AI dec slope: 285.2 cm/sec2 LV V1 max: 100.0 cm/sec LV V1 mean: 66.5 cm/sec LV V1 VTI: 21.8 cm MR max lele: 574.1 cm/sec SV(LVOT): 82.8 ml MR max P.7 mmHg TR max lele: 155.3 cm/sec PI end-d lele: 143.3 cm/sec TR max P.9 mmHg Med Peak E' Lele: 6.0 cm/sec Med E/e': 11.7 Lat Peak E' Lele: 8.6 cm/sec Lat E/e': 8.2 Procedure A two-dimensional transthoracic echocardiogram with color flow and Doppler was performed. Left Ventricle The left ventricular size, thickness and function are normal. The left ventricular ejection fraction is normal. E/A reversal consistent with but not diagnostic of poor LV compliance. The left ventricular w all motion is normal. Right Ventricle The right ventricle is normal in size and function. Atria The left atrium is mildly dilated. The right atrium is mildly dilated. Mitral Valve There is mild mitral valve thickening. There is no mitral valve stenosis. There is moderate mitral regurgitation. Tricuspid Valve There is mild tricuspid valve thickening. There is no tricuspid stenosis. There is moderate tricuspid regurgitation. Right ventricular systolic pressure is normal. Aortic Valve The aortic valve is trileaflet. There is moderate aortic valve thickening. There is moderate aortic sclerosis.;. Moderate valvular aortic stenosis. Mild aortic regurgitation. Pulmonic Valve The pulmonic valve is not well visualized. There is no pulmonic valvular stenosis. Moderate pulmonic valvular regurgitation. Great Vessels The aortic root is normal size. Pericardium/Pleura There is no pericardial effusion. Interpretation Summary The left ventricular size, thickness and function are normal The left ventricular ejection fraction is normal. The left ventricular wall motion is normal. The left atrium is mildly dilated. The right atrium is mildly dilated. There is moderate tricuspid regurgitation. Right ventricular systolic pressure is normal. There is moderate aortic valve thickening. The aortic valve is trileaflet. There is moderate aortic sclerosis.; Moderate valvular aortic stenosis. E/A reversal consistent with but not diagnostic of poor LV compliance There is moderate mitral regurgitation. Mild aortic regurgitation. MD Alexx Harrell 07/10/2018 12:53 PM
[2018-07-10] MEDS: metoPROLOL SUCCINATE 25 MG TAB.SR.24H (FP) PO SCH (13:58)
--- NOTE | 2018-07-10 14:24 | PN ---
Progress Note (short form) - Note Progress Note: VASCULAR Surgery Carotid US reviewed. Left ICA shows 70% to near occlusion. Will order CTA to look at left ICA. CTA is the gold standard test in these situations. Will follow Charly Cevallos DO
[2018-07-11] MEDS: INSULIN SLIDING SCALE (NOVOLOG) 1 VIAL SQ SCH (06:17)
[2018-07-11] MEDS: LEVOTHYROXINE NA 25 MCG TABLET (FP) PO SCH (06:18)
[2018-07-11] MEDS: ENALAPRIL MALEATE 10 MG TABLET (FP) PO SCH (09:47)
[2018-07-11] MEDS: DOCUSATE SODIUM 100 MG CAPSULE (FP) PO SCH (09:47)
[2018-07-11] MEDS: metoPROLOL SUCCINATE 25 MG TAB.SR.24H (FP) PO SCH (09:48)
[2018-07-11] MEDS: ASPIRIN 81 MG CHEWABLE TABLETS PO SCH (09:48)
[2018-07-11] MEDS: ENOXAPARIN NA (PORCINE) 40 MG/0.4 ML DISP.SYRIN SQ SCH (09:48)
[2018-07-11] MEDS ORDERED: amLODIPine BESYLATE 5 MG TABLET (FP) PO SCH (10:00)
--- NOTE | 2018-07-11 10:41 | DS ---
Physical Examination Vital Signs: Vital Signs Temperature 98.4 F 07/11/18 05:00 Pulse Rate 68 07/11/18 05:00 Respiratory Rate 20 07/11/18 05:38 Blood Pressure 167/77 07/11/18 05:00 O2 Sat by Pulse Oximetry (%) 100 07/11/18 05:38 Constitutional: Yes: Well Nourished, No Distress, Calm Cardiovascular: Yes: WNL, Regular Rate and Rhythm Respiratory: Yes: WNL, Regular, CTA Bilaterally. No: Accessory Muscle Use, Tachypnea, Wheezes Gastrointestinal: Yes: WNL, Normal Bowel Sounds, Soft. 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 No: Facial Droop, Lethargy, Numbness, Paresthesia, Tingling, Tremors , Unsteady Gait, Weakness Psychiatric: Yes: WNL, Alert, Oriented Labs: CBC, BMP 07/10/18 05:30 07/10/18 05:30 Discharge Summary Reason For Visit: HYPERTENSIVE URGENCY, TIA Current Active Problems Carotid stenosis, left (Acute) HLD (hyperlipidemia) (Acute) Hypertension (Acute) Hypertensive urgency (Acute) TIA (transient ischemic attack) (Acute) Hospital Course: 82 year old male admitted for transient confusion/facial droop concerning for cva. symptoms resolved within hours. Pt did not receive tpa. Pt evaluated by neurology. Possible TIA. CT/MRI neg for cva. Pt started on high dose statin, asa. Recommend outpt neuro follow up Carotid us revealed significant hemodynamic stenosis >75% of left carotid, CTA ordered and reviewed, approximately 75% stenosis of left carotid, case discussed with vascular , recommend outpt follow up. Emphasized the importance of compliance with statin/asa and low fat diet with pt and family. BP trend noted to be elevated. BP goal should be 130/80 in this pt w/ diabetes. Pt started on metoprolol, and amlodipine. Case discussed with cardiology. Continue outpt follow up. Case discussed in detail pt's PCP. Emphasized importance of low na diet and keeping a bp log with pt and daughter. Pt currently at baseline. Ambulating without difficulty, no neuro deficits. BP needs better control, explained to pt. Labs stable. Pt is medically stable for discharge home with close monitoring. 35 minutes spent in discharge planning Condition: Improved - Instructions Diet, Activity, Other Instructions: low na diet insulin sliding scale BP MEDS: DIRECTED CHECK BP EVERY AM- KEEP A LOG AND BRING IT WITH YOU WHEN YOU SEE PCP IF BP <110/60- HOLD BP MEDS PLEASE FOLLOW UP DIRECTED Referrals: Chetan Ny MD [Staff Physician] - 2 Weeks Almita Knox MD [Non Staff, Medical] - 1 Week Charly Cevallos MD [Non Staff, Medical] - 2 Weeks Disposition: HOME - Home Medications Comprehensive Discharge Medication List: Ambulatory Orders Aspirin [ASA -] 81 mg PO DAILY 05/24/13 Enalapril Maleate [Vasotec -] 30 mg PO DAILY 05/24/13 NPH, Human Insulin Isophane [Humulin N] 25 unit SQ BID 05/24/13 Levothyroxine [Synthroid -] 25 mcg PO DAILY 07/09/18 Amlodipine Besylate [Norvasc -] 5 mg PO DAILY #30 tablet 07/11/18 Atorvastatin Ca [Lipitor] 80 mg PO HS #30 tablet 07/11/18 Metoprolol Succinate [Toprol XL -] 25 mg PO DAILY 30 Days tab.sr.24h 07/11/18
[2018-07-11 10:51] VITALS: BP 184/87; PULSE 64; TEMP 98.6
--- NOTE | 2018-07-11 10:56 | CON.CARD ---
Cardiology Consult (text) - Consultation Consultation Note: cc: confusion, facial droop hpi: 82 m hx dm, htn, hld, TIAs, here with confusion, facial droop. No cp sob palps dizzy loc pnd orthopnea le edema. Sxs resolved now. Dx with TIA. Sees me for cardio. pmh: per hpi psh: nc social: no tob fam: no premature cad ros: per hpi; no nvd cough rodriguez fever abd pain gib hematuria dysuria meds: Home Medications Medication Instructions Recorded Aspirin [ASA -] 81 mg PO DAILY 05/24/13 Enalapril Maleate [Vasotec -] 30 mg PO DAILY 05/24/13 NPH, Human Insulin Isophane 25 unit SQ BID 05/24/13 [Humulin N] Levothyroxine [Synthroid -] 25 mcg PO DAILY 07/09/18 Amlodipine Besylate [Norvasc -] 5 mg PO DAILY #30 tablet 07/11/18 Atorvastatin Ca [Lipitor] 80 mg PO HS #30 tablet 07/11/18 Metoprolol Succinate [Toprol XL -] 25 mg PO DAILY 30 Days tab.sr.24h 07/11/18 pe: Vital Signs Period Temp Pulse Resp BP Sys/Lorenz Pulse Ox Last 24 Hr 97.8 F-98.6 F 58-72 18-20 152-184/60-87 96-100 nad no jvd rrr s1s2 no mrg cta bl nl eff aaox3 no le e/c/c abd nt nd pos bs no jaundice diaphoresis pos dp pt no carotid bruits Laboratory Last Values WBC 6.4 K/mm3 (4.0-10.0) 07/10/18 05:30 RBC 4.06 M/mm3 (4.00-5.60) 07/10/18 05:30 Hgb 12.1 GM/dL (11.7-16.9) 07/10/18 05:30 Hct 34.9 % (35.4-49) L 07/10/18 05:30 MCV 86.0 fl (80-96) 07/10/18 05:30 MCH 29.8 pg (25.7-33.7) 07/10/18 05:30 MCHC 34.7 g/dl (32.0-35.9) 07/10/18 05:30 RDW 14.3 % (11.9-15.9) 07/10/18 05:30 Plt Count 144 K/MM3 (134-434) 07/10/18 05:30 MPV 9.7 fl (7.5-11.1) 07/10/18 05:30 Absolute Neuts (auto) 4.1 K/mm3 (1.5-8.0) 07/10/18 05:30 Neutrophils % 64.4 % (42.8-82.8) 07/10/18 05:30 Lymphocytes % 23.3 % (8-40) D 07/10/18 05:30 Monocytes % 9.1 % (3.8-10.2) D 07/10/18 05:30 Eosinophils % 2.5 % (0-4.5) 07/10/18 05:30 Basophils % 0.7 % (0-2.0) 07/10/18 05:30 Nucleated RBC % 0 % (0-0) 07/10/18 05:30 PT with INR 11.60 SEC (9.7-13.0) 07/09/18 17:28 INR 0.98 (0.83-1.09) 07/09/18 17:28 Sodium 138 mmol/L (136-145) 07/10/18 05:30 Potassium 3.8 mmol/L (3.5-5.1) 07/10/18 05:30 Chloride 103 mmol/L (98-107) 07/10/18 05:30 Carbon Dioxide 30 mmol/L (21-32) 07/10/18 05:30 Anion Gap 5 MMOL/L (8-16) L 07/10/18 05:30 BUN 16 mg/dL (7-18) 07/10/18 05:30 Creatinine 0.8 mg/dL (0.55-1.3) 07/10/18 05:30 Creat Clearance w eGFR > 60 (>60) 07/10/18 05:30 POC Glucometer 223 UNITS (80-120) 07/11/18 05:27 Random Glucose 175 mg/dL (74-106) H 07/10/18 05:30 Hemoglobin A1c % 8.3 % (4.2-6.3) H 07/09/18 17:28 Calcium 8.2 mg/dL (8.5-10.1) L 07/10/18 05:30 Phosphorus 3.5 mg/dL (2.5-4.9) 07/10/18 05:30 Magnesium 2.0 mg/dL (1.8-2.4) 07/10/18 05:30 Total Bilirubin 0.4 mg/dL (0.2-1) 07/10/18 05:30 AST 28 U/L (15-37) 07/10/18 05:30 ALT 34 U/L (13-61) 07/10/18 05:30 Alkaline Phosphatase 80 U/L (45-117) 07/10/18 05:30 Creatine Kinase 231 IU/L (26-308) 07/10/18 05:30 Creatine Kinase Index 2.0 % (0.0-5.0) 07/10/18 05:30 CK-MB (CK-2) 4.7 ng/mL (0.5-3.6) H 07/10/18 05:30 Troponin I 0.07 ng/ml (0.00-0.05) H 07/10/18 05:30 Total Protein 6.6 g/dl (6.4-8.2) 07/10/18 05:30 Albumin 3.2 g/dl (3.4-5.0) L 07/10/18 05:30 Triglycerides 96 mg/dL (0-150) 07/09/18 17:28 Cholesterol 254 mg/dL (50-200) H 07/09/18 17:28 Total LDL Cholesterol 128 mg/dL (5-100) H 07/09/18 17:28 HDL Cholesterol 83 mg/dL (40-60) H 07/09/18 17:28 Urine Color Ltyellow 07/09/18 17:50 Urine Appearance Clear 07/09/18 17:50 Urine pH 7.0 (5.0-8.0) 07/09/18 17:50 Ur Specific [place] 1.012 (1.010-1.035) 07/09/18 17:50 Urine Protein 2+ (NEGATIVE) H 07/09/18 17:50 Urine Glucose (UA) 1+ (NEGATIVE) H 07/09/18 17:50 Urine Ketones Negative (NEGATIVE) 07/09/18 17:50 Urine Blood Negative (NEGATIVE) 07/09/18 17:50 Urine Nitrite Negative (NEGATIVE) 07/09/18 17:50 Urine Bilirubin Negative (<2.0 mg/dL) 07/09/18 17:50 Urine Urobilinogen Negative mg/dL (0.2-1.0) 07/09/18 17:50 Ur Leukocyte Esterase Negative (NEGATIVE) 07/09/18 17:50 Urine WBC (Auto) 1 /hpf (3-5) 07/09/18 17:50 Urine RBC (Auto) 5 /hpf (0-3) 07/09/18 17:50 Ur Epithelial Cells Rare /HPF (FEW) 07/09/18 17:50 Hyaline Casts 1 /lpf 07/09/18 17:50 Urine Mucus Rare 07/09/18 17:50 Blood Type O POSITIVE 07/09/18 17:28 Antibody Screen Negative 07/09/18 17:28 echo 06/2018: nl lv/rv, tracey, mod mr/tr/pr, nl rvsp, mod as, mild ar cta neck: 75% lica tele: sr ecg: sr, old rbbb a/p: 82 m hx dm, htn, hld, TIAs, here with confusion, facial droop. TIA: -cont asa, statin, bp control -vascular rec'd outpt f/u for carotid stenosis htn: -elevated here -added toprol 25 and norvasc 5 to home regimen, monitor as outpt 1-2 weeks hld: -cont statin
== END 2018-07-11 11:49 | disposition home or self-care (01) ==
LOC: JER 16:13 → JERBED 18:47 → INTOOBSV 18:47 → J4W 20:02
PROVIDERS: ADMIT Internal Medicine; ATTEND Nurse Practitioner Family
PROC: 3E0337Z Introduction of Electrolytic and Water Balance Substance into Peripheral Vein, Percutaneous Approach (ICD-10-PCS; principal; 2018-07-09)
PROC: 3E013VG Introduction of Insulin into Subcutaneous Tissue, Percutaneous Approach (ICD-10-PCS; 2018-07-09)
PROC: 3E013GC Introduction of Other Therapeutic Substance into Subcutaneous Tissue, Percutaneous Approach (ICD-10-PCS; 2018-07-09)
DX: G45.9 Transient cerebral ischemic attack, unspecified (principal); I65.22 Occlusion and stenosis of left carotid artery; I16.0 Hypertensive urgency; I10 Essential (primary) hypertension; E78.5 Hyperlipidemia, unspecified; E11.621 Type 2 diabetes mellitus with foot ulcer; L97.509 Non-pressure chronic ulcer of other part of unspecified foot with unspecified severity; Z86.73 Personal history of transient ischemic attack (TIA), and cerebral infarction without residual deficits; Z79.4 Long term (current) use of insulin; Z91.013 Allergy to seafood; Z79.82 Long term (current) use of aspirin
CPT/HCPCS: 36415; 70450-TC; 70498-TC; 70544-TC; 70551-TC; 80053; 81003; 81015; 82465; 82550; 82553; 82962; 83036; 83718; 83721; 83735; 84100; 84478; 84484; 85025; 85610; 86850; 86900; 86901; 93005; 93010; 93306-TC; 93880-TC; 96372; 97116-GP; 97162-GP; 99285-25; G0378; J7030

== ENCOUNTER 2018-10-19 09:25 | Emergency (ER) | payer BC ==
[2018-10-19 09:48] VITALS: BP 143/46; PULSE 54; TEMP 97.9; BMI 25.4
--- NOTE | 2018-10-19 10:41 | PDOC ---
Attending Attestation - Resident Resident Name: Kristen Krause - ED Attending Attestation I have performed the following: I have examined & evaluated the patient, The case was reviewed & discussed with the resident, I agree w/resident's findings & plan, Exceptions are as noted - HPI HPI: 10/19/18 11:53 83 yo M presenting to the ER due to swelling of his legs which was noted 3 days ago No chest pain, no shortness of breath No weakness, no dizziness Leg is non painful No erythema No trauma to the leg No prior episodes like this Pt is relatively immobile No prior surgeries of the legs - Physicial Exam PE: 10/19/18 11:52 GENERAL: The patient is in no acute distress. ENT: Ears normal, nares patent, oropharynx clear without exudates. Moist mucous membranes. No tonsillar enlargement, no exudates NECK: Normal range of motion, supple LUNGS: Breath sounds equal, clear to auscultation bilaterally. No wheezes, and no crackles. HEART:Regular rate and rhythm, normal S1 and S2 without murmur, rub or gallop. ABDOMEN: Soft, nontender, normoactive bowel sounds. EXTREMITIES: Bilateral lower extremity edema 3+ to the knees bilaterally , no erythema NEUROLOGICAL: Cranial nerves II through XII grossly intact. Normal speech. No focal neurological deficits. SKIN: Warm, Dry, normal turgor, no rashes or lesions noted. 10/19/18 12:20 - Medical Decision Making 10/19/18 12:20 Duplex negative 10/19/18 12:21 Laboratory Tests 10/19/18 10/19/18 10:38 10:38 WBC 7.2 Hgb 10.5 L Hct 32.9 L Plt Count 129 L BUN 27 H Creatinine 1.1 Will plan to discharge to home Follow up with PMD Return to the ER if swelling persists or worsens Pt had been taking asa 325mg daily Pt told he can return to Asa 81 if that was a chronic medication Clinical impression: bilateral lower extremity edema, initial presentation
[2018-10-19 10:49] LABS: BASO % 0.7 % (0-2.0); HEMATOCRIT 32.9 % (35.4-49); HEMOGLOBIN 10.5 GM/dL (11.7-16.9); LYMPH % 34.2 % (8-40); MCH 28.3 pg (25.7-33.7); MEAN CELL VOLUME 88.7 fl (80-96); MEAN PLT VOLUME 9.6 fl (7.5-11.1); MONO % 8.2 % (3.8-10.2); NEUT % 52.9 % (42.8-82.8); PLATELET COUNT 129 K/MM3 (134-434); RBC 3.71 M/mm3 (4.00-5.60); RDW 15.1 % (11.9-15.9); WHITE BLOOD COUNT 7.2 K/mm3 (4.0-10.0)
[2018-10-19 11:17] LABS: ALBUMIN 3.6 g/dl (3.4-5.0); ALK PHOS 97 U/L (45-117); ANION GAP 7 MMOL/L (8-16); BILIRUBIN,TOTAL 0.2 mg/dL (0.2-1); BLOOD UREA NITROGEN 27 mg/dL (7-18); CALCIUM 8.4 mg/dL (8.5-10.1); CHLORIDE 105 mmol/L (98-107); CO2 26 mmol/L (21-32); CREATININE 1.1 mg/dL (0.55-1.3); GLUCOSE,RANDOM 137 mg/dL (74-106); POTASSIUM 4.7 mmol/L (3.5-5.1); SGOT/AST 27 U/L (15-37); SGPT/ALT 31 U/L (13-61); SODIUM 138 mmol/L (136-145); TOT PROT 6.8 g/dl (6.4-8.2)
[2018-10-19 11:37] LABS: INR 1.03 (0.83-1.09); PROTHROMBIN TIME (PATIENT) 12.2 SEC (9.7-13.0)
[2018-10-19 11:40] LABS: ACTIVATED PTT 32.2 SECONDS (25.2-36.5)
--- NOTE | 2018-10-19 11:57 | PDOC ---
History of Present Illness - General Chief Complaint: Edema Stated Complaint: SWOLLEN LF LEG Time Seen by Provider: 10/19/18 10:12 History Source: Patient, Family (daughter) Exam Limitations: No Limitations - History of Present Illness Initial Comments: 10/19/18 19:35 Pt is an 83yo M with PMH of CVA, DM, HTN presenting to ED for L leg swelling. L leg is more swollen than R leg. Pt was advised by son who is a doctor to come to ED to get doppler study done. Pt does not have any other complaints. Denies chest pain, sob, syncope, pain in the calves, abdominal pain, n/v/d, back pain, urinary symptoms, headache, weakness, numbness, tingling PMD: Abilio PMH: see hpi Meds: see med rec Past History - Past Medical History Allergies/Adverse Reactions: Allergies Allergy/AdvReac Type Severity Reaction Status Date / Time shellfish derived AdvReac Severe Rash Verified 10/19/18 09:39 DUCK EGG AdvReac Severe Rash Uncoded 10/19/18 09:39 Home Medications: Ambulatory Orders Aspirin [ASA -] 81 mg PO DAILY 05/24/13 Enalapril Maleate [Vasotec -] 30 mg PO DAILY 05/24/13 NPH, Human Insulin Isophane [Humulin N] unit SQ BID 05/24/13 Levothyroxine [Synthroid -] 25 mcg PO DAILY 07/09/18 Amlodipine Besylate [Norvasc -] 10 mg PO DAILY 07/26/18 Aspirin [Ecotrin] 325 mg PO ONCE 10/19/18 Atorvastatin Ca [Lipitor] 40 mg PO HS 10/19/18 Insulin Regular [NOVOLIN R VIAL *IVPUSH / ER / ICU Only*] 0 unit SQ ASDIR Metformin HCl [Glucophage] 500 mg PO ASDIR 10/19/18 Metoprolol Succinate [Toprol XL -] 50 mg PO DAILY 10/19/18 Anemia: Yes Asthma: No Cancer: No Cardiac Disorders: No CVA: Yes (TIA x2 2006,2009) COPD: No CHF: No Dementia: No Diabetes: Yes (type 1) GI Disorders: No Disorders: No HTN: Yes Hypercholesterolemia: Yes Liver Disease: No Seizures: No Thyroid Disease: Yes (HYPOTHYROIDISM) - Surgical History Abdominal Surgery: No Appendectomy: No Cardiac Surgery: No Cholecystectomy: No Lung Surgery: No Neurologic Surgery: No Orthopedic Surgery: No - Suicide/Smoking/Psychosocial Hx Smoking Status: No Smoking History: Unknown if ever smoked Have you smoked in the past 12 months: No Number of Cigarettes Smoked Daily: 0 Hx Alcohol Use: No Drug/Substance Use Hx: No Substance Use Type: None Hx Substance Use Treatment: No Review of Systems - Review of Systems Constitutional: No: Symptoms Reported HEENTM: No: Symptoms Reported Respiratory: No: Symptoms reported Cardiac (ROS): No: Symptoms Reported ABD/GI: No: Symptoms Reported : No: Symptoms Reported Musculoskeletal: No: Symptoms Reported Integumentary: Yes: See HPI Neurological: No: Symptoms reported *Physical Exam - Vital Signs Last Vital Signs Temp Pulse Resp BP Pulse Ox 97.9 F 54 L 16 143/46 L 99 10/19/18 09:44 10/19/18 09:44 10/19/18 09:44 10/19/18 09:44 10/19/18 09:44 - Physical Exam General Appearance: Yes: Nourished, Appropriately Dressed. No: Apparent Distress HEENT: positive: EOMI, TOO, Normal ENT Inspection Neck: positive: Trachea midline, Supple. negative: Carotid bruit, Lymphadenopathy (R), Lymphadenopathy (L) Respiratory/Chest: positive: Lungs Clear, Normal Breath Sounds. negative: Crackles, Rales, Stridor, Wheezing Cardiovascular: positive: Regular Rhythm, Regular Rate, S1, S2. negative: Edema , JVD, Murmur Vascular Pulses: Carotid (R): 2+, Carotid (L): 2+, Dorsalis-Pedis (R): 2+, Doralis-Pedis (L): 2+ Gastrointestinal/Abdominal: positive: Normal Bowel Sounds, Soft. negative: Tender Musculoskeletal: negative: CVA Tenderness Extremity: positive: Normal Capillary Refill, Swelling (bilateral edema, L>R. not tender, not erythematous). negative: Calf Tenderness, Erythema Integumentary: positive: Normal Color, Dry, Warm Neurologic: positive: environmental attorney II-XII NML intact, Fully Oriented, Alert, Normal Mood/ Affect, Normal Response, Motor Strength 5/5 ED Treatment Course - LABORATORY CBC & Chemistry Diagram: 10/19/18 10:38 10/19/18 10:38 - ADDITIONAL ORDERS Additional order review: Laboratory Results 10/19/18 10/19/18 10:38 10:38 PT with INR 12.20 INR 1.03 PTT (Actin FS) 32.2 Sodium 138 Potassium 4.7 Chloride 105 Carbon Dioxide 26 Anion Gap 7 L BUN 27 H Creatinine 1.1 Creat Clearance w eGFR 64.09 Random Glucose 137 H Calcium 8.4 L Total Bilirubin 0.2 AST 27 ALT 31 Alkaline Phosphatase 97 Total Protein 6.8 Albumin 3.6 10/19/18 10:38 RBC 3.71 L MCV 88.7 MCHC 32.0 RDW 15.1 MPV 9.6 Neutrophils % 52.9 Lymphocytes % 34.2 D Monocytes % 8.2 Eosinophils % 4.0 Basophils % 0.7 - RADIOLOGY Radiology Studies Ordered: Category Date Time Status DUPLEX VASCUL US-1 LEG [US] Stat Ultrasound 10/19/18 10:27 Completed Medical Decision Making - Medical Decision Making 10/19/18 19:38 Pt is an 83yo M with PMH of CVA, DM, HTN presenting to ED for L leg swelling. L leg is more swollen than R leg. Pt was advised by son who is a doctor to come to ED to get doppler study done. Pt does not have any other complaints. Denies chest pain, sob, syncope, pain in the calves, abdominal pain, n/v/d, back pain, urinary symptoms, headache, weakness, numbness, tingling vitals normal pe lle swelling greater than R. ddx includes but not limted to dvt, chf, cellulitis, dependent edema, electrolyte/metabolic abnormality -labs -doppler doppler negative for dvt labs wnl. pt stable, will dc home. given return precautions *DC/Admit/Observation/Transfer Diagnosis at time of Disposition: Swelling - Discharge Dispostion Disposition: HOME Condition at time of disposition: Good Decision to Admit order: No - Referrals Referrals: Almita Knox MD [Primary Care Provider] - - Patient Instructions Printed Discharge Instructions: DI for Dependent Edema Additional Instructions: You were seen in the emergency room today for swelling of the left leg. You do not have a DVT. I recommend that you make an appointment with your doctor this week to discuss the leg swelling. Please elevate the legs, apply ice if needed. Wear compression stockings. Come back to the emergency room if you start to develop pain, you have chest pain, you feel short of breath, you pass out or if any new concerning symptom develops. Thank you - Post Discharge Activity
== END 2018-10-19 12:43 | disposition home or self-care (01) ==
LOC: JER 09:25
DX: R60.9 Edema, unspecified (principal); I10 Essential (primary) hypertension; E78.00 Pure hypercholesterolemia, unspecified; E10.9 Type 1 diabetes mellitus without complications; Z79.4 Long term (current) use of insulin; E03.9 Hypothyroidism, unspecified; Z86.73 Personal history of transient ischemic attack (TIA), and cerebral infarction without residual deficits
CPT/HCPCS: 36415; 80053; 85025; 85610; 85730; 93971-TC; 99283-25

== ENCOUNTER 2023-10-21 04:03 | Inpatient (IN) | payer OTHER, MEDICARE ==
[2023-10-21 05:31] LABS: BASO % 0.7 % (0-2.0); EOS % 3.9 % (0-4.5); HEMATOCRIT 36.5 % (35.4-49); HEMOGLOBIN 11.6 GM/dL (11.7-16.9); MCH 27.4 pg (25.7-33.7); MCHC 31.8 g/dl (32.0-35.9); MEAN PLT VOLUME 8.9 fl (7.5-11.1); MONO % 8.4 % (3.8-10.2); PLATELET COUNT 98 10^3/uL (134-434); RBC 4.24 M/mm3 (4.00-5.60); RDW 16.2 % (11.9-15.9); WHITE BLOOD COUNT 7.9 K/mm3 (4.0-10.0)
[2023-10-21] MEDS ORDERED: ACETAMINOPHEN INJECTION 100 ML IVPB ONE (06:12)
[2023-10-21] MEDS: ACETAMINOPHEN 1000 MG/100 ML BAG IVPB ONE (06:15)
[2023-10-21 06:21] LABS: POTASSIUM 4.2 mmol/L (3.5-5.1)
[2023-10-21 06:24] LABS: ALBUMIN 3.4 g/dl (3.4-5.0); BLOOD UREA NITROGEN 19.6 mg/dL (7-18); MAGNESIUM 2.2 mg/dL (1.8-2.4)
[2023-10-21 06:28] LABS: BILIRUBIN,TOTAL 0.6 mg/dL (0.2-1)
[2023-10-21 06:29] LABS: TOT PROT 7.4 g/dl (6.4-8.2)
[2023-10-21 11:26] LABS: EPI CELLS 3 /uL (0-25.1); HYALINE CASTS 0 /uL (0-3.1); URINE APPEARANCE CLEAR; URINE BACTERIA 5 /uL (0-1359); URINE BILIRUBIN NEGATIVE (NEGATIVE); URINE COLOR YELLOW; URINE GLUCOSE (UA) NEGATIVE (NEGATIVE); URINE KETONE NEGATIVE (NEGATIVE); URINE LEUK ESTERASE NEGATIVE (NEGATIVE); URINE NITRITE NEGATIVE (NEGATIVE); URINE PROTEIN 1+ (NEGATIVE); URINE RBC 28 /uL (0-23.9); URINE UROBILINOGEN 0.2 mg/dL (0.2-1.0); URINE WBC 7 /uL (0-25.8)
[2023-10-21] MEDS ORDERED: CARVEDILOL 12.5 MG TABLET (FP) ONE (12:13)
[2023-10-21] MEDS: CARVEDILOL 12.5 MG TABLET (FP) PO ONE (12:15)
[2023-10-21] MEDS ORDERED: ALPRAZolam 1 MG TABLET PO PRN (12:43)
[2023-10-21] MEDS ORDERED: LEVOTHYROXINE NA 25 MCG TABLET (FP) ONE (13:01)
[2023-10-21] MEDS ORDERED: ASPIRIN COATED 81 MG TABLET.EC ONE (13:01)
[2023-10-21] MEDS ORDERED: PANTOPRAZOLE 40 MG TABLET PO ONE (13:01)
[2023-10-21] MEDS ORDERED: ENOXAPARIN NA (PORCINE) 40 MG/0.4 ML DISP.SYRIN SQ ONE (13:01)
[2023-10-21] MEDS: LEVOTHYROXINE NA 25 MCG TABLET (FP) PO ONE (13:06)
[2023-10-21] MEDS: ASPIRIN COATED 81 MG TABLET.EC PO SCH (13:06)
[2023-10-21] MEDS: PANTOPRAZOLE 40 MG TABLET PO SCH (13:06)
[2023-10-21] MEDS: ENOXAPARIN NA (PORCINE) 40 MG/0.4 ML DISP.SYRIN SQ SCH (13:06)
[2023-10-21] MEDS: INSULIN ASPART SLIDING SCALE (NOVOLOG) 1 VIAL SQ SCH (13:18)
[2023-10-21] MEDS ORDERED: LOSARTAN POTASSIUM 50 MG TABLET ONE (13:22)
[2023-10-21] MEDS ORDERED: amLODIPine BESYLATE 10 MG TABLET (FP) ONE (13:22)
[2023-10-21] MEDS ORDERED: INSULIN (NOVOLOG) ASPART 100 UNITS/ML 10ML VIAL ONE (13:24)
[2023-10-21] MEDS: LOSARTAN POTASSIUM 50 MG TABLET PO SCH (13:25)
[2023-10-21] MEDS: amLODIPine BESYLATE 10 MG TABLET (FP) PO ONE (13:25)
[2023-10-21 15:34] VITALS: BMI 26.7
[2023-10-21] MEDS ORDERED: INSULIN (LEVEMIR) 100 UNITS/ML UNITS SQ SCH (22:00)
[2023-10-21] MEDS: ATORVASTATIN CA 40 MG TABLET (FP) PO SCH (22:31)
[2023-10-21] MEDS: ALPRAZolam 1 MG TABLET PO SCH (22:31)
[2023-10-21] MEDS: APIXABAN 5 MG TABLET PO SCH (22:31)
[2023-10-21] MEDS: levETIRAcetam 500 MG TABLET (FP) PO SCH (22:31)
[2023-10-21] MEDS: INSULIN (LEVEMIR) 100 UNITS/ML UNITS SQ SCH (22:32)
[2023-10-21] MEDS: MUPIROCIN 2% TOPICAL OINTMENT 22 GM TUBE TP SCH (22:45)
[2023-10-22] MEDS: LEVOTHYROXINE NA 25 MCG TABLET (FP) PO SCH (06:45)
[2023-10-22] MEDS: INSULIN (LEVEMIR) 100 UNITS/ML UNITS SQ SCH (07:39)
[2023-10-22] MEDS: TAMSULOSIN HCL 0.4 MG CAP PO SCH (09:16)
[2023-10-22] MEDS: amLODIPine BESYLATE 10 MG TABLET (FP) PO SCH (09:17)
[2023-10-22] MEDS: ACETAMINOPHEN 325 MG TABLET (FP) PO PRN (09:17)
[2023-10-22] MEDS: CARVEDILOL 12.5 MG TABLET (FP) PO SCH (09:17)
[2023-10-22] MEDS: ALPRAZolam 0.25 MG TABLET PO SCH (10:04)
[2023-10-22 10:11] LABS: BASO % 0.7 % (0-2.0); EOS % 2.4 % (0-4.5); HEMOGLOBIN 11.5 GM/dL (11.7-16.9); LYMPH % 29.8 % (8-40); MCH 28.1 pg (25.7-33.7); MCHC 32.9 g/dl (32.0-35.9); MEAN CELL VOLUME 85.5 fl (80-96); MONO % 7.6 % (3.8-10.2); NEUT % 59.5 % (42.8-82.8); PLATELET COUNT 98 10^3/uL (134-434); RBC 4.09 M/mm3 (4.00-5.60); RDW 16.7 % (11.9-15.9); WHITE BLOOD COUNT 8.4 K/mm3 (4.0-10.0)
[2023-10-22 10:24] LABS: POTASSIUM 3.6 mmol/L (3.5-5.1)
[2023-10-22 10:39] LABS: BLOOD UREA NITROGEN 22.7 mg/dL (7-18); CALCIUM 8.7 mg/dL (8.5-10.1)
[2023-10-23] MEDS: amLODIPine BESYLATE 5 MG TABLET (FP) PO SCH (09:21)
[2023-10-23] MEDS: D5-1/2NS+10 MEQ KCL - 10 MEQ/1,000 ML INFUS.BAG IV SCH (09:23)
[2023-10-23] MEDS ORDERED: OLANZapine 2.5 MG TABLET PO PRN (12:00)
[2023-10-23] MEDS: INSULIN (LEVEMIR) 100 UNITS/ML UNITS SQ SCH (21:50)
[2023-10-24] MEDS: INSULIN (LEVEMIR) 100 UNITS/ML UNITS SQ SCH ×2 (06:47→21:34)
[2023-10-24] MEDS: D5-1/2NS+10 MEQ KCL - 10 MEQ/1,000 ML INFUS.BAG IV SCH ×2 (06:54→13:32)
[2023-10-24] MEDS: ASCORBIC ACID 500 MG TABLET (FP) PO SCH (09:25)
[2023-10-24] MEDS: MULTIVITAMINS (DAILY MVI) TABLET (FP) PO SCH (09:25)
[2023-10-24 10:01] LABS: BASO % 0.6 % (0-2.0); EOS % 2.4 % (0-4.5); HEMOGLOBIN 11.1 GM/dL (11.7-16.9); LYMPH % 22.5 % (8-40); MCH 27.5 pg (25.7-33.7); MCHC 31.8 g/dl (32.0-35.9); MEAN CELL VOLUME 86.4 fl (80-96); MEAN PLT VOLUME 9.3 fl (7.5-11.1); MONO % 8.9 % (3.8-10.2); NEUT % 65.6 % (42.8-82.8); PLATELET COUNT 100 10^3/uL (134-434); RBC 4.05 M/mm3 (4.00-5.60); RDW 16.5 % (11.9-15.9)
[2023-10-24 10:16] LABS: POTASSIUM 3.8 mmol/L (3.5-5.1)
[2023-10-24 10:21] LABS: CALCIUM 8.2 mg/dL (8.5-10.1)
[2023-10-24 10:24] LABS: CREATININE 1.7 mg/dL (0.55-1.3)
[2023-10-24 10:38] LABS: BLOOD UREA NITROGEN 48.2 mg/dL (7-18)
[2023-10-24] MEDS: GENTAMICIN SULFATE 0.3% OPHTHALMIC (EYE DROPS) 5ML BOTTLE OU SCH (12:02)
[2023-10-24] MEDS ORDERED: INSULIN ASPART SLIDING SCALE (NOVOLOG) 1 VIAL SQ SCH (13:16)
[2023-10-24] MEDS: INSULIN ASPART SLIDING SCALE (NOVOLOG) 1 VIAL SQ SCH (13:38)
[2023-10-25] MEDS: D5-1/2NS+10 MEQ KCL - 10 MEQ/1,000 ML INFUS.BAG IV SCH ×2 (06:37→17:40)
[2023-10-25 08:11] LABS: BASO % 0.5 % (0-2.0); EOS % 3.5 % (0-4.5); HEMATOCRIT 36.5 % (35.4-49); HEMOGLOBIN 11.6 GM/dL (11.7-16.9); LYMPH % 24.3 % (8-40); MCH 27.6 pg (25.7-33.7); MCHC 31.8 g/dl (32.0-35.9); MEAN CELL VOLUME 86.8 fl (80-96); MEAN PLT VOLUME 8.9 fl (7.5-11.1); MONO % 8.7 % (3.8-10.2); PLATELET COUNT 100 10^3/uL (134-434); RDW 16.3 % (11.9-15.9); WHITE BLOOD COUNT 10.1 K/mm3 (4.0-10.0)
[2023-10-25 08:33] LABS: POTASSIUM 3.6 mmol/L (3.5-5.1)
[2023-10-25 08:35] LABS: ALBUMIN 3.3 g/dl (3.4-5.0); BLOOD UREA NITROGEN 30.5 mg/dL (7-18); CALCIUM 8.6 mg/dL (8.5-10.1)
[2023-10-25 08:37] LABS: CREATININE 1.2 mg/dL (0.55-1.3)
[2023-10-25 08:39] LABS: BILIRUBIN,TOTAL 0.8 mg/dL (0.2-1); TOT PROT 7.2 g/dl (6.4-8.2)
[2023-10-26 09:50] LABS: BASO % 0.5 % (0-2.0); EOS % 3.1 % (0-4.5); HEMATOCRIT 31.5 % (35.4-49); HEMOGLOBIN 10.3 GM/dL (11.7-16.9); LYMPH % 31.1 % (8-40); MCH 27.8 pg (25.7-33.7); MCHC 32.6 g/dl (32.0-35.9); MEAN CELL VOLUME 85.2 fl (80-96); MEAN PLT VOLUME 9.1 fl (7.5-11.1); MONO % 10.2 % (3.8-10.2); NEUT % 55.1 % (42.8-82.8); PLATELET COUNT 88 10^3/uL (134-434); RDW 16.6 % (11.9-15.9); WHITE BLOOD COUNT 8.3 K/mm3 (4.0-10.0)
[2023-10-26 10:11] VITALS: BP 130/76; PULSE 76; RESP 22; TEMP 98.7
[2023-10-26 10:13] LABS: POTASSIUM 3.6 mmol/L (3.5-5.1)
[2023-10-26 10:43] LABS: BLOOD UREA NITROGEN 22.6 mg/dL (7-18); CALCIUM 8.3 mg/dL (8.5-10.1)
[2023-10-26] MEDS: ACETAMINOPHEN 500 MG TABLET (FP) PO ONE (11:42)
== END 2023-10-26 11:39 | disposition hospice, inpatient (51) | DRG 884 ==
LOC: JER 04:03 → JERBED 11:44 → OBSVTOIN 12:34 → J6S 14:51
PROVIDERS: ADMIT Internal Medicine; ATTEND Internal Medicine
DX: F03.918 Unspecified dementia, unspecified severity, with other behavioral disturbance (principal); I63.9 Cerebral infarction, unspecified; Z94.0 Kidney transplant status; Z94.4 Liver transplant status; N39.0 Urinary tract infection, site not specified; N17.9 Acute kidney failure, unspecified; E11.52 Type 2 diabetes mellitus with diabetic peripheral angiopathy with gangrene; E11.65 Type 2 diabetes mellitus with hyperglycemia; I65.22 Occlusion and stenosis of left carotid artery; E11.621 Type 2 diabetes mellitus with foot ulcer; D69.6 Thrombocytopenia, unspecified; E03.9 Hypothyroidism, unspecified; I10 Essential (primary) hypertension
CPT/HCPCS: 0241U-QW; 36415; 70450-TC; 71045-TC-FY; 75635-TC; 76775-TC; 80048; 80053; 81003; 82962; 83036; 83735; 84439; 84443; 85025; 87070; 87077; 87086; 87186; 87205; 93005; 93010; 97161-GP; 99285-25; G0378; J0131; Q9967